=== PATIENT | female | born 1970 | race African-American/Black ===

== ENCOUNTER 2017-04-30 10:56 | Inpatient (IN) | payer OTHER ==
[2017-04-30 11:04] VITALS: BMI 48.7
[2017-04-30] MEDS ORDERED: ALBUTEROL SO4 2.5/IPRATROPIUM 0.5 INH SOL 3 ML VIAL.NEB. NEB ONE ×2 (11:09→14:30)
[2017-04-30] MEDS ORDERED: predniSONE 20 MG TABLET (UD) PO ONE (11:17)
--- NOTE | 2017-04-30 11:19 | PDOC ---
History of Present Illness - General Chief Complaint: Shortness of Breath Stated Complaint: ASTHMA ATTACK Time Seen by Provider: 04/30/17 11:07 History Source: Patient Exam Limitations: No Limitations - History of Present Illness Initial Comments: 04/30/17 11:19 The patient is a 45-year -old female, with significant past medical history of hypertension, hyperlipidemia, obesity, chronic venous stasis disease, asthma, and polysubstance abuse, presents to the ED for progressive shortness of breath for the past two days. She was recently visited by a sick contact who repeatedly coughed in her face. Tried two treatment of albuterol yesterday but with no relief. Nothing today. Not currently on steroids. Never intubated. Hospitalized once for dyspnea due to pneumonia. Took a few antibiotic pills she had left over from 3 weeks ago that were prescribed for a leg ulcer. 04/30/17 11:19 04/30/17 11:22 Past History - Past Medical History Allergies/Adverse Reactions: Allergies Allergy/AdvReac Type Severity Reaction Status Date / Time Penicillins AdvReac Verified 04/30/17 11:04 Home Medications: Ambulatory Orders Albuterol Sulfate Inhaler - [Ventolin Hfa Inhaler -] 2 inh PO Q6H PRN 01/12/16 Clopidogrel Bisulfate [Plavix -] 75 mg PO DAILY 01/12/16 Doxepin HCl 100 mg PO DAILY 01/12/16 Losartan/Hydrochlorothiazide [Losartan-Hctz 100-25 mg Tab] 1 each PO DAILY 01/11 Methadone [Dolophine -] 100 mg PO DAILY 01/12/16 Pantoprazole Sodium [Protonix] 40 mg PO DAILY 01/12/16 Tramadol HCl 50 mg PO BID 01/12/16 Asthma: Yes (currently on prn medication) Cardiac Disorders: Yes (HEART MURMUR) CVA: Yes (MILD STROKE IN 1997 DUE TO DRUG USE) COPD: No Diabetes: No GI Disorders: No Disorders: No HTN: Yes Hypercholesterolemia: Yes Kidney Stones: No Seizures: Yes (alcohol related-last episode, 1997) Thyroid Disease: No - Surgical History Abdominal Surgery: No Appendectomy: No Cardiac Surgery: No Cholecystectomy: No Lung Surgery: No Neurologic Surgery: No Orthopedic Surgery: Yes (LEFT KNEE IN 2009 DUE TO DJD) - Reproductive History PID: No - Immunization History Immunization Up to Date: Yes - Suicide/Smoking/Psychosocial Hx Smoking Status: Yes Smoking History: Current every day smoker Have you smoked in the past 12 months: Yes Number of Cigarettes Smoked Daily: 10 Information on smoking cessation initiated: Yes 'Breaking Loose' booklet given: 05/30/12 Hx Alcohol Use: Yes (daily) Drug/Substance Use Hx: No Substance Use Type: Alcohol Hx Substance Use Treatment: Yes (in [facility]) Respiratory Specific PMHX - Complaint Specific PMHX TB (Tuberculosis): No Review of Systems - Review of Systems Able to Perform ROS?: Yes Is the patient limited Somali proficient: No Constitutional: No: Chills Respiratory: Yes: Cough, Shortness of Breath, SOB with Exertion, Wheezing *Physical Exam - Vital Signs Last Vital Signs Temp Pulse Resp BP Pulse Ox 98.3 F 119 H 22 153/105 85 L 04/30/17 11:01 04/30/17 11:01 04/30/17 11:01 04/30/17 11:01 04/30/17 11:01 - Physical Exam General Appearance: Yes: Appropriately Dressed, Moderate Distress, Obese HEENT: positive: Other (possibly cyanotic lips) Respiratory/Chest: positive: Crackles, Wheezing. negative: Chest Tender Cardiovascular: positive: Regular Rhythm, Regular Rate, S1, S2 Gastrointestinal/Abdominal: positive: Normal Bowel Sounds Musculoskeletal: positive: Normal Inspection Extremity: positive: Delayed Capillary Refill Integumentary: positive: Dry, Warm Neurologic: positive: Alert, Normal Mood/Affect ED Treatment Course - LABORATORY CBC & Chemistry Diagram: 04/30/17 11:43 04/30/17 11:43 - RADIOLOGY Radiology Studies Ordered: Category Date Time Status CHEST PA & LAT [RAD] Stat Radiology 04/30/17 11:15 Ordered Medical Decision Making - Medical Decision Making 04/30/17 11:21 The patient is a 45-year -old female, with significant past medical history of hypertension, hyperlipidemia, obesity, chronic venous stasis disease, asthma, and polysubstance abuse, presents to the ED for progressive shortness of breath for the past two days. Asthma/copd exacerbation vs influenza, vs pneumonia CRX pending, basic labs, ua, Ucx. *DC/Admit/Observation/Transfer Diagnosis at time of Disposition: Acute respiratory failure - Discharge Dispostion Admit: Yes - Referrals Referrals: Jourdan Hoff MD, MD [Primary Care Provider] - - Patient Instructions - Post Discharge Activity
--- NOTE | 2017-04-30 11:30 | PDOC ---
Attending Attestation - HPI HPI: 04/30/17 14:13 Patient is a 46 year old female with a significant past medical history of HTN, hypercholesterolemia, obesity, polycythemia, chronic venous stasis disease, asthma, polysubstance abuse who presents to the ED with complaints of SOB that began yesterday morning. Patient reports experiencing a slight cough saturday morning after taking care of her niece all weekend who was coughing. Patient reports taking 2 treatments of albuterol yesterday with minimal relief. She reports taking previously prescribed antibiotics, thinking it would help relieve her SOB. She states antibiotics were prescribed for ulcer on left lower extremity. Patient reports being unable to take any breathing treatments today do to being increasingly weak. Denies nausea, vomiting. Denies CP. Denies fevers, chills. Denies dysuria, hematuria, diarrhea, constipation. Denies out of state travelling. Denies any other symptoms. Allergies: Penicillins. Social history: Current smoker (6 Cigarettes per day). Social drinker (1 to 2 drinks per week). Former drug use on methadone. Surgical history: None PMD: Dr. Jourdan Hoff - Medical Decision Making 04/30/17 14:13 Documentation prepared by Rene Arredondo, acting as medical research associate for Jarett Felix MD, /DO. <Rene Arredondo - Last Filed: 04/30/17 14:13> - Resident Resident Name: KoreyHardeep - ED Attending Attestation I have performed the following: I have examined & evaluated the patient, The case was reviewed & discussed with the resident, I agree w/resident's findings & plan, Exceptions are as noted - Physicial Exam PE: 04/30/17 14:53 GENERAL: Awake, alert, and fully oriented, in no acute distress HEAD: No signs of trauma EYES: PERRLA, EOMI, sclera anicteric, conjunctiva clear ENT: Auricles normal inspection, hearing grossly normal, nares patent, oropharynx clear without exudates. Moist mucosa NECK: Normal ROM, supple, no lymphadenopathy, JVD, or masses LUNGS: poor air movement, mild wheezing diffusely, no increased WOB HEART: Regular rate and rhythm, normal S1 and S2, no murmurs, rubs or gallops ABDOMEN: Soft, nontender, normoactive bowel sounds. No guarding, no rebound. No masses EXTREMITIES: Normal range of motion, no edema. No clubbing or cyanosis. No cords, erythema, or tenderness NEUROLOGICAL: Normal speech, cranial nerves intact, negative pronator drift, 5/ 5 strength in all 4 extremities, normal sensation to light touch in all 4 extremities, normal cerebellar exam, normal gait, normal reflexes and tone - Medical Decision Making 04/30/17 14:54 46-year-old female multiple medical problems including asthma presents with shortness of breath and cough for 3 days. Vitals remarkable for tachycardia to the 110s and hypoxia on arrival to 85% on room air. After nebulizer treatment oxygen saturation is 95% on room air. Exam with poor air movement and diffuse wheezing consistent with likely asthma exacerbation. Will obtain labs, chest x- ray and reassess. Given shortness of breath and tachycardia, PE is on the differential however patient has no recent immobility, is not on hormones. If vitals and symptoms do not normalize with nebulizer, will consider a d-dimer. <Jarett Felix - Last Filed: 04/30/17 14:56>
[2017-04-30] MEDS ORDERED: predniSONE 20 MG TABLET (UD) ONE (11:39)
[2017-04-30 12:05] LABS: BASO % 0.4 % (0-2.0); EOS % 0.9 % (0-4.5); HEMATOCRIT 54.4 % (32.4-45.2); HEMOGLOBIN 17.3 GM/dL (10.7-15.3); LYMPH % 22.2 % (8-40); MCH 30.5 pg (25.7-33.7); MCHC 31.8 g/dl (32.0-36.0); MEAN CELL VOLUME 95.9 fl (80-96); MEAN PLT VOLUME 8.2 fl (7.5-11.1); NEUT % 67.5 % (42.8-82.8); PLATELET COUNT 168 K/MM3 (134-434); RBC 5.68 M/mm3 (3.60-5.2); RDW 15.8 % (11.6-15.6); WHITE BLOOD COUNT 7.3 K/mm3 (4.0-10.0)
[2017-04-30 12:25] LABS: ALBUMIN 3.3 g/dl (3.4-5.0); ALK PHOS 117 U/L (45-117); ANION GAP 9 (8-16); BLOOD UREA NITROGEN 6 mg/dL (7-18); CALCIUM 9.1 mg/dL (8.5-10.1); CHLORIDE 102 mmol/L (98-107); CO2 29 mmol/L (21-32); CREATININE 0.7 mg/dL (0.55-1.02); GLUCOSE,RANDOM 87 mg/dL (74-106); PHOSPHOROUS 3.6 mg/dL (2.5-4.9); SGPT/ALT 23 U/L (12-78); SODIUM 140 mmol/L (136-145); TOT PROT 7.3 g/dl (6.4-8.2)
[2017-04-30 12:35] LABS: SGOT/AST 24 U/L (15-37)
[2017-04-30] MEDS ORDERED: ALBUTEROL SO4 0.083% IH SOL 2.5 MG/3 ML VIAL.NEB. NEB ONE (14:27)
[2017-04-30] MEDS ORDERED: CEFTRIAXONE IN IS-OSM DEXTROSE 2 GM/50 ML BAG IVPB ONE (16:22)
[2017-04-30] MEDS ORDERED: AZITHROMYCIN IVPB 500 MG in DEXTROSE 5%-WATER - 250 ML IVPB ONE (16:23)
[2017-04-30] MEDS ORDERED: AZITHROMYCIN IVPB 250 ML IVPB ONE (17:32)
--- NOTE | 2017-04-30 23:35 | HP ---
CHIEF COMPLAINT: SOB, Wheezing PCP: Dr. Hoff HISTORY OF PRESENT ILLNESS: This is a 46 y/o woman with a PMHx of: Asthma, HTN, HLD, Polycythemia, Polysubstance Abuse, Chronic Venous Stenosis Ulcers, Obesity. Who presents to the ED with increased SOB x 1 day. Patient reports having CHESTER, Orthopnea. Patient reports increased use of her Nebulizer and MDI. Patient denies fever, chills, dizziness, CP, palpitations, AP, N/V/D, constipation, dysuria. Recent sick contact- niece coughing over the weekend. ER course was notable for: (1) Chest Xray- image Cardiomegaly, Increased lung markings- report pending (2) Influenza Swab- Negative A, B (3) BNP 735 Recent Travel: None PAST MEDICAL HISTORY: See HPI PAST SURGICAL HISTORY: Social History: Smoking: Current daily Alcohol: Socially Drugs: Former- Polysubstance Family History: Allergies Penicillins Adverse Reaction (Verified 04/30/17 11:04) VAGINAL DISCHARGE HOME MEDICATIONS: Home Medications Medication Instructions Recorded Albuterol Sulfate Inhaler - 2 inh PO Q6H PRN 01/12/16 [Ventolin Hfa Inhaler -] Clopidogrel Bisulfate [Plavix -] 75 mg PO DAILY 01/12/16 Doxepin HCl 100 mg PO DAILY 01/12/16 Losartan/Hydrochlorothiazide 1 each PO DAILY 01/12/16 [Losartan-Hctz 100-25 mg Tab] Methadone [Dolophine -] 100 mg PO DAILY 01/12/16 Pantoprazole Sodium [Protonix] 40 mg PO DAILY 01/12/16 Tramadol HCl 50 mg PO BID 01/12/16 REVIEW OF SYSTEMS CONSTITUTIONAL: Absent: fever, chills, diaphoresis, generalized weakness, malaise, loss of appetite, weight change HEENT: Absent: rhinorrhea, nasal congestion, throat pain, throat swelling, difficulty swallowing, mouth swelling, ear pain, eye pain, visual changes CARDIOVASCULAR: Absent: chest pain, syncope, palpitations, irregular heart rate, lightheadedness , peripheral edema RESPIRATORY: cough, shortness of breath, dyspnea with exertion, orthopnea, wheezing Absent: stridor, hemoptysis GASTROINTESTINAL: Absent: abdominal pain, abdominal distension, nausea, vomiting, diarrhea, constipation, melena, hematochezia GENITOURINARY: Absent: dysuria, frequency, urgency, hesitancy, hematuria, flank pain, genital pain MUSCULOSKELETAL: Absent: myalgia, arthralgia, joint swelling, back pain, neck pain SKIN: Absent: rash, itching, pallor HEMATOLOGIC/IMMUNOLOGIC: Absent: easy bleeding, easy bruising, lymphadenopathy, frequent infections ENDOCRINE: Absent: unexplained weight gain, unexplained weight loss, heat intolerance, cold intolerance NEUROLOGIC: Absent: headache, focal weakness or paresthesias, dizziness, unsteady gait, seizure, mental status changes, bladder or bowel incontinence PSYCHIATRIC: Absent: anxiety, depression, suicidal or homicidal ideation, hallucinations. PHYSICAL EXAMINATION Vital Signs - 24 hr 04/30/17 04/30/17 11:01 11:25 Temperature 98.3 F Pulse Rate 119 H 112 H Respiratory 22 Rate Blood Pressure 153/105 O2 Sat by Pulse 85 L 98 Oximetry (%) GENERAL: Severely Obese, awake, alert, and fully oriented, in no acute distress. HEAD: Normal with no signs of trauma. EYES: Pupils equal, round and reactive to light, extraocular movements intact, sclera anicteric, conjunctiva clear. No lid lag. EARS, NOSE, THROAT: Ears normal, nares patent, oropharynx clear without exudates. Moist mucous membranes. NECK: Normal range of motion, supple without lymphadenopathy, JVD, or masses. LUNGS: Scattered diffuse wheeze, coarse rhonchi throughout. No accessory muscle use. HEART: Regular rate and rhythm, normal S1 and S2 without murmur, rub or gallop. ABDOMEN: Soft, obese, nontender, not distended, normoactive bowel sounds, no guarding, no rebound, no masses. No hepatomegaly or splenomegaly. MUSCULOSKELETAL: Normal range of motion at all joints. No bony deformities or tenderness. No CVA tenderness. UPPER EXTREMITIES: 2+ pulses, warm, well-perfused. No cyanosis. No clubbing. No peripheral edema. LOWER EXTREMITIES: 2+ pulses, warm, well-perfused. No calf tenderness. +4 pitting peripheral edema B/L. NEUROLOGICAL: Cranial nerves II-XII intact. Normal speech. Gait not observed. PSYCHIATRIC: Cooperative. Good eye contact. Appropriate mood and affect. SKIN: Warm, dry, normal turgor, no rashes normal capillary refill. venous stasis ulcers, eschar, crusting noted Laboratory Results - last 24 hr 0104/30/17 04/30/17 11:43 11:43 11:43 WBC 7.3 D RBC 5.68 H D Hgb 17.3 H D Hct 54.4 H D MCV 95.9 MCH 30.5 MCHC 31.8 L RDW 15.8 H Plt Count 168 D MPV 8.2 Neutrophils % 67.5 D Lymphocytes % 22.2 D Monocytes % 9.0 Eosinophils % 0.9 Basophils % 0.4 Sodium 140 Potassium 4.0 Chloride 102 Carbon Dioxide 29 Anion Gap 9 BUN 6 L D Creatinine 0.7 D Creat Clearance w eGFR > 60 Random Glucose 87 Calcium 9.1 Phosphorus 3.6 Magnesium 2.0 Total Bilirubin 1.0 AST 24 D ALT 23 D Alkaline Phosphatase 117 D Creatine Kinase 109 Troponin I < 0.02 B-Natriuretic Peptide 735.10 H Total Protein 7.3 Albumin 3.3 L ASSESSMENT/PLAN: This is a 46 y/o woman with PMHx of Asthma, HTN, HLD, Polysubstance Abuse (on Methadone) Severe Obesity, Polycythemia, Chronic Venous Stasis Ulcers. Admitted for Acute Asthma Exacerbation, Hypoxemia, Pneumonia. Plan: 1. Acute Asthma Exacerbation- Continue Duonebs, Solumederol, O2. Appreciate Pulm Consult. Monitor Peakflow, Spo2, Vitals 2. Hypoxemia- Likely secondary to Pneumonia vs Reactive Airway. ABG-pending, O2 3. Pneumonia- CAP, started on Ceftriaxone, Azithromycin. will switch to Levofloxacin- PCN allergy, Blood Cultures- pending, Urine Legionella, Influenza swab- negative. Monitor CBC 4. HTN- Continue home meds, monitor renal function 5. HLD- Diet controlled 6. Polycythemia- Continue Plavix 7. Chronic Venous Stasis Ulcers- elevate extremities, continue diuretics 8. Polysubstance Abuse- Will need to verify Methadone dose, then continue 9. Severe Obesity- Patient counseled on weight management. Appreciate RD consult 10. FEN- PO Fluids, replete lytes prn, Low Na, Low Cholesterol, Carb Control Diet Code Status: Full Code Dispo: Requires Inpatient Care Was notified by [employer] by the scribe and the primary RN @22:22, regarding who the Attending is taking care of the patient. The case was never signed out to the [facility]. The admit to order was placed at 16:21 by the ED resident for Dr. Haylie Hoff. That is why there was a delay in the patient being seen. Visit type - Emergency Visit Emergency Visit: Yes ED Registration Date: 04/30/17 Care time: The patient presented to the Emergency Department on the above date and was hospitalized for further evaluation of their emergent condition. - New Patient This patient is new to me today: Yes Date on this admission: 05/01/17 - Critical Care Critical Care patient: No
[2017-05-01 00:22] LABS: ALLENS TEST POSITIVE; ARTERIAL BLD GAS O2 SATURATION 93.1 % (90-98.9); ARTERIAL BLOOD GAS BASE EXCESS 1.3 meq/l (-2-2); ARTERIAL BLOOD GAS PCO2 46.5 mmHg (35-45); ARTERIAL BLOOD GAS PO2 70.3 mmHg (80-100); ARTERIAL BLOOD GAS pH 7.38 (7.35-7.45)
[2017-05-01 04:13] LABS: URINE APPEARANCE CLOUDY; URINE BILIRUBIN NEGATIVE (NEGATIVE); URINE BLOOD 1+ (NEGATIVE); URINE GLUCOSE (UA) NEGATIVE (NEGATIVE); URINE KETONE NEGATIVE (NEGATIVE); URINE NITRITE NEGATIVE (NEGATIVE); URINE UROBILINOGEN 4.0 E.U/dl mg/dL (0.2-1.0)
[2017-05-01 04:15] LABS: URINE COLOR YELLOW; URINE LEUK ESTERASE 3+ (NEGATIVE); URINE PROTEIN 3+ (NEGATIVE)
[2017-05-01 04:21] LABS: EPI CELLS MANY /HPF (FEW); URINE BACTERIA RARE /hpf (NONE SEEN); URINE MUCUS RARE
[2017-05-01] MEDS ORDERED: ALBUTEROL SO4 2.5/IPRATROPIUM 0.5 INH SOL 3 ML VIAL.NEB. NEB PRN (07:00)
[2017-05-01] MEDS ORDERED: ACETAMINOPHEN 325 MG TABLET (FP) PO PRN (08:07)
[2017-05-01] MEDS ORDERED: methylPREDNISolone NA SUCC 40 MG/1 ML VIAL ONE ×3 (09:06→23:04)
[2017-05-01] MEDS: methylPREDNISolone NA SUCC 40 MG/1 ML VIAL IVPUSH SCH ×3 (09:22→23:11)
--- NOTE | 2017-05-01 09:32 | EKG ---
Test Reason : Blood Pressure : / mmHG Vent. Rate : 092 BPM Atrial Rate : 092 BPM P-R Int : 146 ms QRS Dur : 138 ms QT Int : 420 ms P-R-T Axes : 064 105 -09 degrees QTc Int : 519 ms NORMAL SINUS RHYTHM LEFT ATRIAL ENLARGEMENT RIGHT BUNDLE BRANCH BLOCK POSSIBLE INFERIOR INFARCT (CITED ON OR BEFORE 12-JAN-2016) ANTEROSEPTAL INFARCT , AGE UNDETERMINED T WAVE ABNORMALITY, CONSIDER LATERAL ISCHEMIA ABNORMAL ECG WHEN COMPARED WITH ECG OF 25-JUN-2016 09:29, PREMATURE ATRIAL COMPLEXES ARE NO LONGER PRESENT ANTEROSEPTAL INFARCT IS NOW PRESENT T WAVE INVERSION NOW EVIDENT IN LATERAL LEADS Confirmed by MONIQUE HERRERA, CLAIRE ([id number]) on 05/01/2017 9:31:33 AM Referred By: Confirmed By:CLAIRE AMAYA MD
--- NOTE | 2017-05-01 11:28 | PN ---
Progress Note, Physician Chief Complaint: AWAEK ON SUPPORT STILL SOB - Current Medication List Current Medications: Active Medications Acetaminophen (Tylenol -) 650 mg PO Q6H PRN PRN Reason: FEVER OR PAIN Albuterol/Ipratropium (Duoneb -) 1 amp NEB Q4H PRN PRN Reason: SHORTNESS OF BREATH Clopidogrel Bisulfate (Plavix -) 75 mg PO DAILY [facility] Doxepin HCl (Sinequan -) 100 mg PO DAILY [facility] HCTZ/Losartan Potassium (Hyzaar -) 2 tab PO DAILY [facility] Levofloxacin (Levaquin 500 Mg Premixed Ivpb -) 500 mg in 100 mls @ 100 mls/hr IVPB DAILY [facility] Methadone HCl (Dolophine -) 100 mg PO DAILY@0600 [facility] Methylprednisolone Sodium Succinate (Solu-Medrol -) 80 mg IVPUSH ONCE ONE Stop: 05/01/17 16:27 Methylprednisolone Sodium Succinate (Solu-Medrol -) 40 mg IVPUSH Q6H-IV ALEJANDRA Last Admin: 05/01/17 09:22 Dose: 40 mg Pantoprazole Sodium (Protonix -) 40 mg PO DAILY [facility] - Objective Vital Signs: Vital Signs Temperature 97.8 F 05/01/17 07:03 Pulse Rate 101 H 05/01/17 07:03 Respiratory Rate 18 05/01/17 07:03 Blood Pressure 130/81 05/01/17 07:03 O2 Sat by Pulse Oximetry (%) 94 L 05/01/17 07:03 Constitutional: Yes: Mild Distress Eyes: Yes: WNL HENT: Yes: WNL Neck: Yes: WNL Cardiovascular: Yes: Tachycardia Respiratory: Yes: On Nasal O2, Poor Air Entry, SOB Gastrointestinal: Yes: WNL Genitourinary: Yes: WNL Musculoskeletal: Yes: Muscle Weakness Extremities: Yes: WNL Edema: Yes Peripheral Pulses WNL: Yes Integumentary: Yes: WNL Wound/Incision: Yes: Clean/Dry Neurological: Yes: Pre-Existing Deficit ...Motor Strength: LLE, RLE Psychiatric: Yes: Other Labs: CBC, BMP 04/30/17 11:43 04/30/17 11:43 Problem List - Problems (1) Acute respiratory failure Code(s): J96.00 - ACUTE RESPIRATORY FAILURE, UNSP W HYPOXIA OR HYPERCAPNIA (2) Alcohol dependence Code(s): F10.20 - ALCOHOL DEPENDENCE, UNCOMPLICATED (3) Asthma Code(s): J45.909 - UNSPECIFIED ASTHMA, UNCOMPLICATED (4) Essential hypertension Code(s): I10 - ESSENTIAL (PRIMARY) HYPERTENSION (5) Hyperlipidemia Code(s): E78.5 - HYPERLIPIDEMIA, UNSPECIFIED (6) Osteoarthritis Code(s): M19.90 - UNSPECIFIED OSTEOARTHRITIS, UNSPECIFIED SITE (7) Seizure disorder Code(s): G40.909 - EPILEPSY, UNSP, NOT INTRACTABLE, WITHOUT STATUS EPILEPTICUS Assessment/Plan IV STEROIDS NEBS 02 SUPPORT PATIENT EDUCATION PAIN CONTROL METHADONE RESTARTED PULM AND ID CONSULT
[2017-05-01] MEDS ORDERED: METHADONE HCL 10 MG TABLET ONE (11:43)
[2017-05-01] MEDS ORDERED: LEVOFLOXACIN 500 MG IVPB 500 MG/100 ML BAG IVPB ONE (11:43)
[2017-05-01] MEDS: PANTOPRAZOLE 40 MG TABLET (FP) PO SCH (11:50)
[2017-05-01] MEDS: LEVOFLOXACIN 500 MG IVPB 500 MG/100 ML BAG IVPB SCH (11:50)
[2017-05-01] MEDS: METHADONE HCL 40 MG DISPERSABLE TABLET PO SCH (11:50)
[2017-05-01] MEDS: DOXEPIN HCL 25 MG CAPSULE PO SCH (11:50)
[2017-05-01] MEDS: CLOPIDOGREL BISULFATE 75 MG TABLET (FP) PO SCH (11:50)
[2017-05-01] MEDS: LOSARTAN 50MG/HCTZ 12.5MG 1 TAB (FP) PO SCH (11:50)
--- NOTE | 2017-05-01 15:12 | CON.PULM ---
Consult Consult Specialty:: PULMONARY Referred by:: ALEXIS Reason for Consultation:: ASTHMA - History of Present Illness Chief Complaint: COUGH/WHEEZE SPUTUM History of Present Illness: Patient is a 46 year old female with a significant past medical history of HTN, hypercholesterolemia, obesity, polycythemia, chronic venous stasis disease, asthma, polysubstance abuse in past now on 100mg methadone who presents to the ED with complaints of SOB that began yesterday morning. Patient reports experiencing a slight cough Saturday morning after taking care of her niece all weekend who was coughing. Patient reports taking 2 treatments of albuterol yesterday with minimal relief. She reports taking previously prescribed antibiotics, thinking it would help relieve her SOB. She states antibiotics were prescribed for ulcer on left lower extremity. Patient reports being unable to take any breathing treatments today do to being increasingly weak. - History Source History Provided By: Patient, Medical Record Limitations to Obtaining History: No Limitations - Past Medical History REGISTERED PHARMACIST: No: Alzheimer's Cardio/Vascular: Yes: HTN, Hyperlipdemia Pulmonary: Yes: Asthma, COPD. No: O2 Dependent Gastrointestinal: No: Ascites Hepatobiliary: No: Cirrhosis Renal/: No: Renal Failure ...LMP: 04/29/12 Heme/Onc: Yes: Other (polycythemia ) Psych: Yes: Addictions, Anxiety Musculoskeletal: Yes: Other (bilateral knee pain due to fall) - Past Surgical History Past Surgical History: Yes: Arthrosocopy (knee) - Alcohol/Substance Use Hx Alcohol Use: Yes (daily) - Smoking History Smoking history: Current every day smoker Have you smoked in the past 12 months: Yes Aproximately how many cigarettes per day: 10 - Social History Usual Living Arrangement: Alone Place of : [facility] History of Recent Travel: No Home Medications - Allergies Allergies/Adverse Reactions: Allergies Allergy/AdvReac Type Severity Reaction Status Date / Time Penicillins AdvReac Verified 04/30/17 11:04 - Home Medications Home Medications: Ambulatory Orders Albuterol Sulfate Inhaler - [Ventolin Hfa Inhaler -] 2 inh PO Q6H PRN 01/12/16 Clopidogrel Bisulfate [Plavix -] 75 mg PO DAILY 01/12/16 Doxepin HCl 100 mg PO DAILY 01/12/16 Losartan/Hydrochlorothiazide [Losartan-Hctz 100-25 mg Tab] 1 each PO DAILY 09/22 /16 Methadone [Dolophine -] 100 mg PO DAILY 01/12/16 Pantoprazole Sodium [Protonix] 40 mg PO DAILY 01/12/16 Tramadol HCl 50 mg PO BID 01/12/16 Family Disease History - Family Disease History Family History: Unremarkable Review of Systems - Review of Systems Constitutional: denies: Fever Eyes: denies: Blurred Vision HENT: denies: Throat Pain Neck: reports: No Symptoms Cardiovascular: reports: Chest Pain Respiratory: reports: Cough, Exercise Intolerance, SOB on Exertion, Wheezing. denies: Hemoptysis, Orthopnea Gastrointestinal: denies: Abdominal Pain Genitourinary: reports: No Symptoms Breasts: reports: No Symptoms Reported Musculoskeletal: reports: No Symptoms Integumentary: reports: No Symptoms Neurological: reports: No Symptoms Physical Exam Vital Sings: Vital Signs Temperature 97.8 F 05/01/17 07:03 Pulse Rate 78 05/01/17 12:27 Respiratory Rate 22 05/01/17 12:27 Blood Pressure 120/80 05/01/17 12:27 O2 Sat by Pulse Oximetry (%) 95 05/01/17 12:27 Constitutional: Yes: Obese Eyes: Yes: EOM Intact HENT: Yes: Normocephalic Neck: Yes: Trachea Midline Cardiovascular: Yes: Regular Rate and Rhythm, S1, S2 Respiratory: Yes: Diminished, Wheezes Gastrointestinal: Yes: Normal Bowel Sounds, Abdomen, Obese Edema: No Integumentary: Yes: Venous Stasis Changes Neurological: Yes: Alert Psychiatric: Yes: Alert Labs: CBC, BMP 04/30/17 11:43 04/30/17 11:43 ABG Results ABG pH 7.38 (7.35-7.45) 05/01/17 00:11 ABG pCO2 at Pt Temp 46.5 mmHg (35-45) H 05/01/17 00:11 ABG pO2 at Pt Temp 70.3 mmHg (80-100) L 05/01/17 00:11 ABG HCO3 26.7 meq/L (22-26) H 05/01/17 00:11 ABG O2 Sat (Measured) 93.1 % (90-98.9) 05/01/17 00:11 ABG O2 Content 22.2 % vol (15-22) H 05/01/17 00:11 ABG Base Excess 1.3 meq/l (-2-2) 05/01/17 00:11 rest reviewed Imaging - Results Chest X-ray: Report Reviewed, Image Reviewed EKG: Report Reviewed, Image Reviewed Problem List - Problems (1) Asthma Code(s): J45.909 - UNSPECIFIED ASTHMA, UNCOMPLICATED (2) Essential hypertension Code(s): I10 - ESSENTIAL (PRIMARY) HYPERTENSION (3) Hyperlipidemia Code(s): E78.5 - HYPERLIPIDEMIA, UNSPECIFIED (4) Osteoarthritis Code(s): M19.90 - UNSPECIFIED OSTEOARTHRITIS, UNSPECIFIED SITE Assessment/Plan A/E B. ASTHMA LIKELY DUE TO ACUTE BRONCHITIS MULTIPLE CO-MORBID CONDITIONS LISTED WILL NEED TO R/O [facility] OUTPATIENT INFLU SWAB/SPUTUM GRAM STAIN/CULTURE IV STEROIDS/ANTIBIOTICS/BRONCHODILATORS/O2 SUPPLEMENTATION/DAILY PEAK FLOW WILL FOLLOW THANK YOU Adrien WALL MD
[2017-05-01] MEDS ORDERED: ALBUTEROL SO4 2.5/IPRATROPIUM 0.5 INH SOL 3 ML VIAL.NEB. NEB SCH (15:30)
[2017-05-01] MEDS ORDERED: methylPREDNISolone NA SUCC 125 MG/2 ML VIAL IVPUSH ONE (16:26)
[2017-05-01] MEDS ORDERED: ALBUTEROL SO4 2.5/IPRATROPIUM 0.5 INH SOL 3 ML VIAL.NEB. NEB ONE (18:24)
[2017-05-01] MEDS: ALBUTEROL SO4 2.5/IPRATROPIUM 0.5 INH SOL 3 ML VIAL.NEB. NEB SCH ×2 (18:29→23:12)
--- NOTE | 2017-05-01 18:39 | CON.ID ---
Consult Consult Specialty:: infectious diseases Referred by:: Reason for Consultation:: sob,pna - History of Present Illness Chief Complaint: sob History of Present Illness: 46 year old female with past medical history of HTN, hypercholesterolemia, obesity, polycythemia, chronic venous stasis disease, asthma, polysubstance abuse in past now on 100mg methadone came to the ED with complaints of SOB that began yesterday morning. According to the patient she was wiht her niece who it seems was sick and had cough and patient says she also developed coughing. 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 No: O2 Dependent Gastrointestinal: No: Ascites Hepatobiliary: No: Cirrhosis Renal/: No: Renal Failure ...LMP: 04/29/12 Psych: Yes: Addictions, Anxiety Musculoskeletal: Yes: Other (bilateral knee pain due to fall) - Past Surgical History Past Surgical History: Yes: Arthrosocopy (knee) - Alcohol/Substance Use Hx Alcohol Use: Yes (daily) - Smoking History Smoking history: Current every day smoker Have you smoked in the past 12 months: Yes Aproximately how many cigarettes per day: 10 - Social History Usual Living Arrangement: Alone History of Recent Travel: No Home Medications - Allergies Allergies/Adverse Reactions: Allergies Allergy/AdvReac Type Severity Reaction Status Date / Time Penicillins AdvReac Verified 04/30/17 11:04 - Home Medications Home Medications: Ambulatory Orders Albuterol Sulfate Inhaler - [Ventolin Hfa Inhaler -] 2 inh PO Q6H PRN 01/12/16 Clopidogrel Bisulfate [Plavix -] 75 mg PO DAILY 01/12/16 Doxepin HCl 100 mg PO DAILY 01/12/16 Losartan/Hydrochlorothiazide [Losartan-Hctz 100-25 mg Tab] 1 each PO DAILY 01/11 Methadone [Dolophine -] 100 mg PO DAILY 01/12/16 Pantoprazole Sodium [Protonix] 40 mg PO DAILY 01/12/16 Tramadol HCl 50 mg PO BID 01/12/16 Review of Systems - Review of Systems Constitutional: reports: No Symptoms Eyes: reports: No Symptoms HENT: reports: No Symptoms Neck: reports: No Symptoms Cardiovascular: reports: No Symptoms Respiratory: reports: Cough, SOB, SOB on Exertion, Other Gastrointestinal: reports: No Symptoms Genitourinary: reports: No Symptoms Musculoskeletal: reports: No Symptoms Integumentary: reports: No Symptoms Neurological: reports: No Symptoms Endocrine: reports: No Symptoms Hematology/Lymphatic: reports: No Symptoms Psychiatric: reports: No Symptoms Physical Exam Vital Signs: Vital Signs Temperature 97.8 F 05/01/17 07:03 Pulse Rate 78 05/01/17 12:27 Respiratory Rate 22 05/01/17 12:27 Blood Pressure 120/80 05/01/17 12:27 O2 Sat by Pulse Oximetry (%) 95 05/01/17 12:27 Constitutional: Yes: Well Nourished, Calm, Mild Distress Eyes: Yes: Conjunctiva Clear Neck: Yes: Supple, Trachea Midline Cardiovascular: Yes: Regular Rate and Rhythm Respiratory: Yes: On Nasal O2, Poor Air Entry (bases) Gastrointestinal: Yes: Normal Bowel Sounds, Soft Musculoskeletal: Yes: WNL Extremities: Yes: WNL Neurological: Yes: Alert, Oriented Psychiatric: Yes: Alert, Oriented Labs: CBC, BMP 04/30/17 11:43 04/30/17 11:43 Imaging - Results Chest X-ray: Report Reviewed, Image Reviewed Assessment/Plan at the moment i don not think patient has pneumonia,though she might be developing something patient has been started on levaquin patient denies she has copd Problem List - Problems (1) Asthma Code(s): J45.909 - UNSPECIFIED ASTHMA, UNCOMPLICATED (2) Essential hypertension Code(s): I10 - ESSENTIAL (PRIMARY) HYPERTENSION (3) Hyperlipidemia Code(s): E78.5 - HYPERLIPIDEMIA, UNSPECIFIED (4) Osteoarthritis Code(s): M19.90 - UNSPECIFIED OSTEOARTHRITIS, UNSPECIFIED SITE plan at the moment we will continue levaquin and watch how ppatient does will repeat the xray in a day or so await for all results incentive petra rest as per pul/primary team
[2017-05-02] MEDS: methylPREDNISolone NA SUCC 40 MG/1 ML VIAL IVPUSH SCH ×4 (02:17→22:29)
[2017-05-02] MEDS: ALBUTEROL SO4 2.5/IPRATROPIUM 0.5 INH SOL 3 ML VIAL.NEB. NEB SCH ×5 (08:30→20:58)
[2017-05-02] MEDS: CLOPIDOGREL BISULFATE 75 MG TABLET (FP) PO SCH (10:17)
[2017-05-02] MEDS: PANTOPRAZOLE 40 MG TABLET (FP) PO SCH (10:17)
[2017-05-02] MEDS: LEVOFLOXACIN 500 MG IVPB 500 MG/100 ML BAG IVPB SCH (10:17)
--- NOTE | 2017-05-02 10:50 | PN ---
Progress Note (short form) - Note Progress Note: PULMONARY States breathing slightly improved but still with shortness of breath, chest tightness, nonproductive cough and wheezing. No fevers or chills. Last Vital Signs Temp Pulse Resp BP Pulse Ox 98.3 F 98 H 22 135/88 92 L 05/02/17 05:56 05/02/17 05:56 05/02/17 05:56 05/02/17 05:56 05/01/17 23:58 Gen: NAD at rest Heart: RRR Lung: poor air movement, scattered wheezes, rhonchi Abd: soft, nontender Ext: chronic changes CBC, BMP 04/30/17 11:43 04/30/17 11:43 Active Medications Acetaminophen (Tylenol -) 650 mg PO Q6H PRN PRN Reason: FEVER Albuterol/Ipratropium (Duoneb -) 1 amp NEB Q4HWA [facility] Last Admin: 05/02/17 08:30 Dose: 1 amp Clopidogrel Bisulfate (Plavix -) 75 mg PO DAILY [facility] Last Admin: 05/02/17 10:17 Dose: 75 mg Doxepin HCl (Sinequan -) 100 mg PO DAILY [facility] Last Admin: 05/01/17 11:50 Dose: 100 mg HCTZ/Losartan Potassium (Hyzaar -) 2 tab PO DAILY [facility] Last Admin: 05/01/17 11:50 Dose: 2 tab Levofloxacin (Levaquin 500 Mg Premixed Ivpb -) 500 mg in 100 mls @ 100 mls/hr IVPB DAILY [facility] Last Admin: 05/02/17 10:17 Dose: 100 mls/hr Methadone HCl (Dolophine -) 100 mg PO DAILY@0600 [facility] Last Admin: 05/01/17 11:50 Dose: 100 mg Methylprednisolone Sodium Succinate (Solu-Medrol -) 40 mg IVPUSH Q6H-IV [facility] Last Admin: 05/02/17 09:50 Dose: 40 mg Pantoprazole Sodium (Protonix -) 40 mg PO DAILY [facility] Last Admin: 05/02/17 10:17 Dose: 40 mg A/P Acute Hypoxic Respiratory Failure Acute Asthma Exacerbation Acute Bronchitis HTN Hyperlipidemia Polycythemmia Polysubstance Abuse Smoker - continue medrol at current dose - inhaled bronchodilators standing and PRN - O2 to keep SpO2 >90% - monitor peak flow - continue antibiotics - will need to check ambulatory SpO2 on room air to assess for home O2 when ready for discharge - smoking cessation - DVT prophylaxis
[2017-05-02] MEDS: LOSARTAN 50MG/HCTZ 12.5MG 1 TAB (FP) PO SCH (11:19)
[2017-05-02] MEDS: DOXEPIN HCL 25 MG CAPSULE PO SCH (11:20)
[2017-05-02] MEDS ORDERED: METHADONE HCL 40 MG DISPERSABLE TABLET ONE (11:48)
[2017-05-02] MEDS ORDERED: METHADONE HCL 10 MG TABLET ONE (11:48)
[2017-05-02] MEDS: METHADONE 20 MG, METHADONE 80 MG PO SCH (11:55)
[2017-05-02] MEDS: METHADONE HCL 40 MG DISPERSABLE TABLET PO SCH (12:01)
--- NOTE | 2017-05-02 12:03 | PN ---
Progress Note, Physician History of Present Illness: starting to feel little better still sob - Current Medication List Current Medications: Active Medications Acetaminophen (Tylenol -) 650 mg PO Q6H PRN PRN Reason: FEVER Albuterol/Ipratropium (Duoneb -) 1 amp NEB Q4HWA [facility] Last Admin: 05/02/17 08:30 Dose: 1 amp Clopidogrel Bisulfate (Plavix -) 75 mg PO DAILY [facility] Last Admin: 05/02/17 10:17 Dose: 75 mg Doxepin HCl (Sinequan -) 100 mg PO DAILY [facility] Last Admin: 05/02/17 11:20 Dose: 100 mg HCTZ/Losartan Potassium (Hyzaar -) 2 tab PO DAILY [facility] Last Admin: 05/02/17 11:19 Dose: 2 tab Levofloxacin (Levaquin 500 Mg Premixed Ivpb -) 500 mg in 100 mls @ 100 mls/hr IVPB DAILY [facility] Last Admin: 05/02/17 10:17 Dose: 100 mls/hr Methadone HCl 20 mg/ Methadone (HCl 80 mg) 100 mg PO DAILY [facility] Last Admin: 05/02/17 11:55 Dose: 100 mg Methylprednisolone Sodium Succinate (Solu-Medrol -) 40 mg IVPUSH Q6H-IV [facility] Last Admin: 05/02/17 09:50 Dose: 40 mg Pantoprazole Sodium (Protonix -) 40 mg PO DAILY [facility] Last Admin: 05/02/17 10:17 Dose: 40 mg - Objective Vital Signs: Vital Signs Temperature 98.3 F 05/02/17 05:56 Pulse Rate 98 H 05/02/17 05:56 Respiratory Rate 22 05/02/17 05:56 Blood Pressure 135/88 05/02/17 05:56 O2 Sat by Pulse Oximetry (%) 92 L 05/01/17 23:58 Constitutional: Yes: Calm, Mild Distress, Obese Cardiovascular: Yes: Regular Rate and Rhythm Respiratory: Yes: On Nasal O2, Poor Air Entry, Wheezes Gastrointestinal: Yes: Normal Bowel Sounds, Soft Musculoskeletal: Yes: WNL Extremities: Yes: WNL Neurological: Yes: Alert, Oriented Psychiatric: Yes: Alert, Oriented Labs: CBC, BMP 04/30/17 11:43 04/30/17 11:43 Assessment/Plan Problem List - Problems (1) Asthma Code(s): J45.909 - UNSPECIFIED ASTHMA, UNCOMPLICATED (2) Essential hypertension Code(s): I10 - ESSENTIAL (PRIMARY) HYPERTENSION (3) Hyperlipidemia Code(s): E78.5 - HYPERLIPIDEMIA, UNSPECIFIED (4) Osteoarthritis Code(s): M19.90 - UNSPECIFIED OSTEOARTHRITIS, UNSPECIFIED SITE Hyperlipidemia Polycythemmia Polysubstance Abuse Smoker plan continue current mgmt rest as per primary team incentive petra will change levaquin to oral tomorrow
--- NOTE | 2017-05-02 19:05 | PN ---
Progress Note, Physician Chief Complaint: AWAKE ALERT FEELING BETTER - Current Medication List Current Medications: Active Medications Acetaminophen (Tylenol -) 650 mg PO Q6H PRN PRN Reason: FEVER Albuterol/Ipratropium (Duoneb -) 1 amp NEB Q4HWA [facility] Last Admin: 05/02/17 16:05 Dose: 1 amp Clopidogrel Bisulfate (Plavix -) 75 mg PO DAILY [facility] Last Admin: 05/02/17 10:17 Dose: 75 mg Doxepin HCl (Sinequan -) 100 mg PO DAILY [facility] Last Admin: 05/02/17 11:20 Dose: 100 mg HCTZ/Losartan Potassium (Hyzaar -) 2 tab PO DAILY [facility] Last Admin: 05/02/17 11:19 Dose: 2 tab Levofloxacin (Levaquin 500 Mg Premixed Ivpb -) 500 mg in 100 mls @ 100 mls/hr IVPB DAILY [facility] Last Admin: 05/02/17 10:17 Dose: 100 mls/hr Methadone HCl 20 mg/ Methadone (HCl 80 mg) 100 mg PO DAILY [facility] Last Admin: 05/02/17 11:55 Dose: 100 mg Methylprednisolone Sodium Succinate (Solu-Medrol -) 40 mg IVPUSH Q6H-IV [facility] Last Admin: 05/02/17 15:30 Dose: 40 mg Pantoprazole Sodium (Protonix -) 40 mg PO DAILY [facility] Last Admin: 05/02/17 10:17 Dose: 40 mg - Objective Vital Signs: Vital Signs Temperature 97.7 F 05/02/17 14:31 Pulse Rate 93 H 05/02/17 14:31 Respiratory Rate 20 05/02/17 14:31 Blood Pressure 114/87 05/02/17 14:31 O2 Sat by Pulse Oximetry (%) 93 L 05/02/17 09:00 Constitutional: Yes: Mild Distress Eyes: Yes: WNL HENT: Yes: WNL Neck: Yes: WNL Cardiovascular: Yes: WNL Respiratory: Yes: On Nasal O2, SOB Gastrointestinal: Yes: WNL Musculoskeletal: Yes: Muscle Weakness Extremities: Yes: WNL Edema: No Peripheral Pulses WNL: Yes Integumentary: Yes: WNL ...Motor Strength: WNL Psychiatric: Yes: WNL Labs: CBC, BMP 04/30/17 11:43 04/30/17 11:43 Problem List - Problems (1) Acute respiratory failure Code(s): J96.00 - ACUTE RESPIRATORY FAILURE, UNSP W HYPOXIA OR HYPERCAPNIA (2) Alcohol dependence Code(s): F10.20 - ALCOHOL DEPENDENCE, UNCOMPLICATED (3) Asthma Code(s): J45.909 - UNSPECIFIED ASTHMA, UNCOMPLICATED (4) Essential hypertension Code(s): I10 - ESSENTIAL (PRIMARY) HYPERTENSION (5) Hyperlipidemia Code(s): E78.5 - HYPERLIPIDEMIA, UNSPECIFIED (6) Osteoarthritis Code(s): M19.90 - UNSPECIFIED OSTEOARTHRITIS, UNSPECIFIED SITE (7) Seizure disorder Code(s): G40.909 - EPILEPSY, UNSP, NOT INTRACTABLE, WITHOUT STATUS EPILEPTICUS Assessment/Plan IV STEROIDS NEBS 02 SUPPORT PATIENT EDUCATION PAIN CONTROL METHADONE RESTARTED PULM AND ID CONSULT
[2017-05-03] MEDS: methylPREDNISolone NA SUCC 40 MG/1 ML VIAL IVPUSH SCH ×4 (02:24→22:26)
[2017-05-03 08:07] LABS: HEMATOCRIT 54.2 % (32.4-45.2); HEMOGLOBIN 17.2 GM/dL (10.7-15.3); MCH 30.6 pg (25.7-33.7); MCHC 31.7 g/dl (32.0-36.0); MEAN CELL VOLUME 96.6 fl (80-96); MEAN PLT VOLUME 8.1 fl (7.5-11.1); PLATELET COUNT 177 K/MM3 (134-434); RBC 5.61 M/mm3 (3.60-5.2); WHITE BLOOD COUNT 9.8 K/mm3 (4.0-10.0)
[2017-05-03 08:29] LABS: ALBUMIN 3.3 g/dl (3.4-5.0); ANION GAP 6 (8-16); BILIRUBIN,TOTAL 0.6 mg/dL (0.2-1.0); BLOOD UREA NITROGEN 19 mg/dL (7-18); CALCIUM 9.4 mg/dL (8.5-10.1); CHLORIDE 99 mmol/L (98-107); CO2 31 mmol/L (21-32); CREATININE 0.7 mg/dL (0.55-1.02); GLUCOSE,RANDOM 166 mg/dL (74-106); MAGNESIUM 2.4 mg/dL (1.8-2.4); POTASSIUM 4.3 mmol/L (3.5-5.1); SGOT/AST 16 U/L (15-37); SGPT/ALT 27 U/L (12-78); SODIUM 136 mmol/L (136-145); TOT PROT 7.3 g/dl (6.4-8.2)
[2017-05-03 08:30] LABS: ALK PHOS 101 U/L (45-117)
[2017-05-03] MEDS: ALBUTEROL SO4 2.5/IPRATROPIUM 0.5 INH SOL 3 ML VIAL.NEB. NEB SCH ×4 (09:05→21:21)
[2017-05-03] MEDS: LEVOFLOXACIN 500 MG IVPB 500 MG/100 ML BAG IVPB SCH (10:00)
[2017-05-03] MEDS ORDERED: METHADONE HCL 40 MG DISPERSABLE TABLET ONE (10:55)
[2017-05-03] MEDS ORDERED: METHADONE HCL 10 MG TABLET ONE (10:55)
[2017-05-03] MEDS ORDERED: PT OWN MED DRAWER 7, Y5N ONE ×2 (10:56→17:43)
--- NOTE | 2017-05-03 10:57 | PN ---
Progress Note, Physician History of Present Illness: feelign much better sob has improved cough bothering her - Current Medication List Current Medications: Active Medications Acetaminophen (Tylenol -) 650 mg PO Q6H PRN PRN Reason: FEVER Albuterol/Ipratropium (Duoneb -) 1 amp NEB RQID [facility] Last Admin: 05/03/17 09:05 Dose: 1 amp Clopidogrel Bisulfate (Plavix -) 75 mg PO DAILY [facility] Last Admin: 05/02/17 10:17 Dose: 75 mg Doxepin HCl (Sinequan -) 100 mg PO DAILY [facility] Last Admin: 05/02/17 11:20 Dose: 100 mg HCTZ/Losartan Potassium (Hyzaar -) 2 tab PO DAILY [facility] Last Admin: 05/02/17 11:19 Dose: 2 tab Levofloxacin (Levaquin 500 Mg Premixed Ivpb -) 500 mg in 100 mls @ 100 mls/hr IVPB DAILY [facility] Last Admin: 05/02/17 10:17 Dose: 100 mls/hr Methadone HCl 20 mg/ Methadone (HCl 80 mg) 100 mg PO DAILY [facility] Last Admin: 05/02/17 11:55 Dose: 100 mg Methylprednisolone Sodium Succinate (Solu-Medrol -) 40 mg IVPUSH Q6H-IV [facility] Last Admin: 05/03/17 02:24 Dose: 40 mg Pantoprazole Sodium (Protonix -) 40 mg PO DAILY [facility] Last Admin: 05/02/17 10:17 Dose: 40 mg - Objective Vital Signs: Vital Signs Temperature 97.4 F L 05/03/17 06:04 Pulse Rate 73 05/03/17 06:04 Respiratory Rate 20 05/03/17 06:04 Blood Pressure 121/86 05/03/17 06:04 O2 Sat by Pulse Oximetry (%) 93 L 05/02/17 21:00 Constitutional: Yes: No Distress, Calm, Obese Cardiovascular: Yes: Regular Rate and Rhythm Respiratory: Yes: Regular, Poor Air Entry, Other Gastrointestinal: Yes: Normal Bowel Sounds, Soft Musculoskeletal: Yes: WNL Extremities: Yes: WNL Neurological: Yes: Alert, Oriented Psychiatric: Yes: Alert, Oriented Labs: CBC, BMP 05/03/17 06:35 05/03/17 06:35 Assessment/Plan Problem List - Problems (1) Asthma Code(s): J45.909 - UNSPECIFIED ASTHMA, UNCOMPLICATED (2) Essential hypertension Code(s): I10 - ESSENTIAL (PRIMARY) HYPERTENSION (3) Hyperlipidemia Code(s): E78.5 - HYPERLIPIDEMIA, UNSPECIFIED (4) Osteoarthritis Code(s): M19.90 - UNSPECIFIED OSTEOARTHRITIS, UNSPECIFIED SITE Hyperlipidemia Polycythemmia Polysubstance Abuse Smoker plan will change to oral continue current mgmt incentive petra rest as per primary team
[2017-05-03] MEDS: METHADONE 20 MG, METHADONE 80 MG PO SCH (11:10)
[2017-05-03] MEDS: LOSARTAN 50MG/HCTZ 12.5MG 1 TAB (FP) PO SCH (11:11)
[2017-05-03] MEDS: PANTOPRAZOLE 40 MG TABLET (FP) PO SCH (11:12)
[2017-05-03] MEDS: CLOPIDOGREL BISULFATE 75 MG TABLET (FP) PO SCH (11:12)
[2017-05-03] MEDS: DOXEPIN HCL 25 MG CAPSULE PO SCH (11:12)
[2017-05-03] MEDS ORDERED: BENZOCAINE/MENTH/CETYLPYRD CL 1 EACH LOZENGE MM PRN (11:32)
--- NOTE | 2017-05-03 11:33 | PN ---
Progress Note, Physician Chief Complaint: AWAKE COUGHING FEELING SLIGHTLY BETTER - Current Medication List Current Medications: Active Medications Acetaminophen (Tylenol -) 650 mg PO Q6H PRN PRN Reason: FEVER Albuterol/Ipratropium (Duoneb -) 1 amp NEB RQID [facility] Last Admin: 05/03/17 09:05 Dose: 1 amp Benzocaine/Menthol (Cepacol Lozenge -) 1 each MM Q4H PRN PRN Reason: SORE THROAT Clopidogrel Bisulfate (Plavix -) 75 mg PO DAILY [facility] Last Admin: 05/02/17 10:17 Dose: 75 mg Doxepin HCl (Sinequan -) 100 mg PO DAILY [facility] Last Admin: 05/02/17 11:20 Dose: 100 mg HCTZ/Losartan Potassium (Hyzaar -) 2 tab PO DAILY [facility] Last Admin: 05/02/17 11:19 Dose: 2 tab Levofloxacin (Levaquin) 750 mg PO DAILY@0600 [facility] Methadone HCl 20 mg/ Methadone (HCl 80 mg) 100 mg PO DAILY [facility] Last Admin: 05/02/17 11:55 Dose: 100 mg Methylprednisolone Sodium Succinate (Solu-Medrol -) 40 mg IVPUSH Q6H-IV [facility] Last Admin: 05/03/17 02:24 Dose: 40 mg Pantoprazole Sodium (Protonix -) 40 mg PO DAILY [facility] Last Admin: 05/02/17 10:17 Dose: 40 mg - Objective Vital Signs: Vital Signs Temperature 97.9 F 05/03/17 11:07 Pulse Rate 98 H 05/03/17 11:07 Respiratory Rate 18 05/03/17 11:07 Blood Pressure 127/87 05/03/17 11:07 O2 Sat by Pulse Oximetry (%) 93 L 05/02/17 21:00 Constitutional: Yes: Mild Distress Eyes: Yes: WNL HENT: Yes: WNL Neck: Yes: WNL Cardiovascular: Yes: WNL Respiratory: Yes: On Nasal O2, Rhonchi, SOB Gastrointestinal: Yes: WNL Genitourinary: Yes: WNL Musculoskeletal: Yes: Muscle Weakness Extremities: Yes: Other Edema: Yes Integumentary: Yes: WNL Wound/Incision: Yes: Clean/Dry Neurological: Yes: Pre-Existing Deficit ...Motor Strength: LLE, RLE Psychiatric: Yes: Other Labs: CBC, BMP 05/03/17 06:35 05/03/17 06:35 Problem List - Problems (1) Acute respiratory failure Code(s): J96.00 - ACUTE RESPIRATORY FAILURE, UNSP W HYPOXIA OR HYPERCAPNIA (2) Alcohol dependence Code(s): F10.20 - ALCOHOL DEPENDENCE, UNCOMPLICATED (3) Asthma Code(s): J45.909 - UNSPECIFIED ASTHMA, UNCOMPLICATED (4) Essential hypertension Code(s): I10 - ESSENTIAL (PRIMARY) HYPERTENSION (5) Hyperlipidemia Code(s): E78.5 - HYPERLIPIDEMIA, UNSPECIFIED (6) Osteoarthritis Code(s): M19.90 - UNSPECIFIED OSTEOARTHRITIS, UNSPECIFIED SITE (7) Seizure disorder Code(s): G40.909 - EPILEPSY, UNSP, NOT INTRACTABLE, WITHOUT STATUS EPILEPTICUS (8) Methadone dependence Code(s): F11.20 - OPIOID DEPENDENCE, UNCOMPLICATED (9) Acute bronchitis Code(s): J20.9 - ACUTE BRONCHITIS, UNSPECIFIED Assessment/Plan IV ABX AND STEROIDS NEBS 02 SUPPORT DV PROPHYLAXIS OOB TO CHAIR PT [facility]
[2017-05-03] MEDS: LEVOFLOXACIN 750 MG TABLET PO SCH (11:34)
--- NOTE | 2017-05-03 12:31 | PN ---
Progress Note (short form) - Note Progress Note: PULMONARY APPEARS STABLE SITTING UP IN BED VSS/AFEBRILE ANICTERIC BILATERAL EXP RHONCHI DIFFUSE S1S2 BS+ OBESE NO EDEMA LABS/MEDS/NOTES/IMAGES/MICRO NOTED HGB 17.2 INFLU SWAB NEG A/E B. ASTHMA LIKELY DUE TO ACUTE BRONCHITIS MULTIPLE CO-MORBID CONDITIONS LISTED WILL NEED TO R/O OSAS OUTPATIENT IV STEROIDS/ANTIBIOTICS/BRONCHODILATORS/O2 SUPPLEMENTATION/DAILY PEAK FLOW CHECK URINE CULTURE FOLLOWS WITH HEME OUTPATIENT R MAE HERRERA Problem List - Problems (1) Asthma Code(s): J45.909 - UNSPECIFIED ASTHMA, UNCOMPLICATED (2) Essential hypertension Code(s): I10 - ESSENTIAL (PRIMARY) HYPERTENSION (3) Hyperlipidemia Code(s): E78.5 - HYPERLIPIDEMIA, UNSPECIFIED (4) Osteoarthritis Code(s): M19.90 - UNSPECIFIED OSTEOARTHRITIS, UNSPECIFIED SITE
[2017-05-04] MEDS: methylPREDNISolone NA SUCC 40 MG/1 ML VIAL IVPUSH SCH ×2 (02:32→09:00)
[2017-05-04] MEDS: LEVOFLOXACIN 750 MG TABLET PO SCH (05:52)
[2017-05-04 06:50] VITALS: BP 147/97; PULSE 90; TEMP 97.6
[2017-05-04] MEDS: ALBUTEROL SO4 2.5/IPRATROPIUM 0.5 INH SOL 3 ML VIAL.NEB. NEB SCH ×2 (08:38→12:00)
[2017-05-04] MEDS ORDERED: HEPARIN NA (PORCINE) 5,000 UNITS/ML 1ML VIAL SQ SCH (10:00)
[2017-05-04] MEDS ORDERED: METHADONE HCL 10 MG TABLET ONE (10:44)
[2017-05-04] MEDS ORDERED: METHADONE HCL 40 MG DISPERSABLE TABLET ONE (10:44)
[2017-05-04] MEDS: METHADONE 20 MG, METHADONE 80 MG PO SCH (10:54)
[2017-05-04] MEDS: LOSARTAN 50MG/HCTZ 12.5MG 1 TAB (FP) PO SCH (10:56)
[2017-05-04] MEDS: PANTOPRAZOLE 40 MG TABLET (FP) PO SCH (10:56)
[2017-05-04] MEDS: CLOPIDOGREL BISULFATE 75 MG TABLET (FP) PO SCH (10:56)
[2017-05-04] MEDS: DOXEPIN HCL 25 MG CAPSULE PO SCH (10:57)
--- NOTE | 2017-05-04 11:44 | DS ---
Physical Examination Vital Signs: Vital Signs Temperature 97.6 F 05/04/17 06:46 Pulse Rate 90 05/04/17 06:46 Respiratory Rate 20 05/04/17 06:46 Blood Pressure 147/97 05/04/17 06:46 O2 Sat by Pulse Oximetry (%) 93 L 05/03/17 21:00 Constitutional: Yes: No Distress Eyes: Yes: WNL HENT: Yes: WNL Neck: Yes: WNL Cardiovascular: Yes: WNL Respiratory: Yes: CTA Bilaterally, Wheezes Gastrointestinal: Yes: WNL Musculoskeletal: Yes: WNL Extremities: Yes: Other Edema: Yes Peripheral Pulses WNL: Yes Integumentary: Yes: Rash, Venous Stasis Changes Wound/Incision: Yes: Dressing Dry and Intact Neurological: Yes: WNL ...Motor Strength: WNL Psychiatric: Yes: WNL Labs: CBC, BMP 05/03/17 06:35 05/03/17 06:35 Discharge Summary Reason For Visit: ACUTE RESPIRATORY FAILURE Current Active Problems Acute bronchitis (Acute) Acute respiratory failure (Acute) Methadone dependence (Acute) Procedures: Principal: CXR Other Procedures: LABS Hospital Course: ADMITTED FOR ACUTE RESP DISTRESS/ACUTE ASTHMA/COPD EXACERBATION ACUTE ON CHRONIC. TREATED WITH IV ABX/NEBS/STEROIDS 02 SUPPORT. Condition: Improved - Instructions Diet, Activity, Other Instructions: LOW SODIUM SEE DR HOFF IN 3 DAYS Referrals: Jourdan Hoff MD, MD [Primary Care Provider] - Disposition: HOME - Home Medications Comprehensive Discharge Medication List: Ambulatory Orders Albuterol Sulfate Inhaler - [Ventolin Hfa Inhaler -] 2 inh PO Q6H PRN 01/12/16 Clopidogrel Bisulfate [Plavix -] 75 mg PO DAILY 01/12/16 Doxepin HCl 100 mg PO DAILY 01/12/16 Losartan/Hydrochlorothiazide [Losartan-Hctz 100-25 mg Tab] 1 each PO DAILY 01/11 Methadone [Dolophine -] 100 mg PO DAILY 01/12/16 Pantoprazole Sodium [Protonix] 40 mg PO DAILY 01/12/16 Tramadol HCl 50 mg PO BID 01/12/16
--- NOTE | 2017-05-04 13:23 | PN ---
Progress Note (short form) - Note Progress Note: PULMONARY Breathing continues to improve. No fevers or chills. Last Vital Signs Temp Pulse Resp BP Pulse Ox 97.6 F 90 20 147/97 93 L 05/04/17 06:46 05/04/17 06:46 05/04/17 06:46 05/04/17 06:46 05/03/17 21:00 Gen: NAD at rest Heart: RRR Lung: better air movement, scattered wheezes, rhonchi Abd: soft, nontender Ext: chronic changes CBC, BMP 05/03/17 06:35 05/03/17 06:35 Active Medications Acetaminophen (Tylenol -) 650 mg PO Q6H PRN PRN Reason: FEVER Albuterol/Ipratropium (Duoneb -) 1 amp NEB RQID [facility] Last Admin: 05/04/17 12:00 Dose: 1 amp Benzocaine/Menthol (Cepacol Lozenge -) 1 each MM Q4H PRN PRN Reason: SORE THROAT Clopidogrel Bisulfate (Plavix -) 75 mg PO DAILY [facility] Last Admin: 05/04/17 10:56 Dose: 75 mg Doxepin HCl (Sinequan -) 100 mg PO DAILY [facility] Last Admin: 05/04/17 10:57 Dose: 100 mg HCTZ/Losartan Potassium (Hyzaar -) 2 tab PO DAILY [facility] Last Admin: 05/04/17 10:56 Dose: 2 tab Heparin Sodium (Porcine) (Heparin -) 5,000 unit SQ BID [facility] Last Admin: 05/04/17 10:55 Dose: 5,000 unit Levofloxacin (Levaquin) 750 mg PO DAILY@0600 [facility] Last Admin: 05/04/17 05:52 Dose: 750 mg Methadone HCl 20 mg/ Methadone (HCl 80 mg) 100 mg PO DAILY [facility] Last Admin: 05/04/17 10:54 Dose: 100 mg Methylprednisolone Sodium Succinate (Solu-Medrol -) 40 mg IVPUSH Q6H-IV [facility] Last Admin: 05/04/17 09:00 Dose: 40 mg Pantoprazole Sodium (Protonix -) 40 mg PO DAILY [facility] Last Admin: 05/04/17 10:56 Dose: 40 mg A/P Acute Hypoxic Respiratory Failure Acute Asthma Exacerbation Acute Bronchitis HTN Hyperlipidemia Polycythemmia Polysubstance Abuse Smoker - can change steroids to PO prednisone and taper as outpt - inhaled bronchodilators standing and PRN - O2 to keep SpO2 >90% - continue antibiotics - smoking cessation - DVT prophylaxis
--- NOTE | 2017-05-04 14:09 | PN ---
Progress Note, Physician History of Present Illness: no issues patient stable - Objective Vital Signs: Vital Signs Temperature 97.6 F 05/04/17 06:46 Pulse Rate 90 05/04/17 06:46 Respiratory Rate 20 05/04/17 06:46 Blood Pressure 147/97 05/04/17 06:46 O2 Sat by Pulse Oximetry (%) 93 L 05/03/17 21:00 Constitutional: Yes: No Distress, Calm Cardiovascular: Yes: Regular Rate and Rhythm Respiratory: Yes: Regular, CTA Bilaterally Gastrointestinal: Yes: Normal Bowel Sounds, Soft Musculoskeletal: Yes: WNL Extremities: Yes: WNL Neurological: Yes: Alert, Oriented Psychiatric: Yes: Alert, Oriented Labs: CBC, BMP 05/03/17 06:35 05/03/17 06:35 Assessment/Plan Problem List - Problems (1) Asthma Code(s): J45.909 - UNSPECIFIED ASTHMA, UNCOMPLICATED (2) Essential hypertension Code(s): I10 - ESSENTIAL (PRIMARY) HYPERTENSION (3) Hyperlipidemia Code(s): E78.5 - HYPERLIPIDEMIA, UNSPECIFIED (4) Osteoarthritis Code(s): M19.90 - UNSPECIFIED OSTEOARTHRITIS, UNSPECIFIED SITE Hyperlipidemia Polycythemmia Polysubstance Abuse Smoker plan continue current mgmt rest as per primary
== END 2017-05-04 13:30 | disposition home or self-care (01) | DRG 133 ==
LOC: JER 10:56 → JERBED 16:21 → J7W 05-02 00:14
PROVIDERS: ADMIT Family Medicine; ATTEND Family Medicine
DX: J96.02 Acute respiratory failure with hypercapnia (principal); J44.1 Chronic obstructive pulmonary disease with (acute) exacerbation; E78.5 Hyperlipidemia, unspecified; I10 Essential (primary) hypertension; I73.89 Other specified peripheral vascular diseases; F19.10 Other psychoactive substance abuse, uncomplicated; R01.1 Cardiac murmur, unspecified; E78.00 Pure hypercholesterolemia, unspecified; G40.909 Epilepsy, unspecified, not intractable, without status epilepticus; F41.8 Other specified anxiety disorders; E66.01 Morbid (severe) obesity due to excess calories; Z68.42 Body mass index [BMI] 45.0-49.9, adult; I83.009 Varicose veins of unspecified lower extremity with ulcer of unspecified site; F17.200 Nicotine dependence, unspecified, uncomplicated; D75.1 Secondary polycythemia; R09.02 Hypoxemia; F10.20 Alcohol dependence, uncomplicated; M25.562 Pain in left knee; M25.561 Pain in right knee; J96.01 Acute respiratory failure with hypoxia; J20.9 Acute bronchitis, unspecified; J44.0 Chronic obstructive pulmonary disease with (acute) lower respiratory infection; Z88.0 Allergy status to penicillin
CPT/HCPCS: 36415; 36600; 71046-TC; 80053; 81003; 81015; 82550; 82803; 82962; 83735; 83880; 84100; 84484; 85025; 85027; 87081; 87086; 87804; 87899; 93005; 93010; 94010; 94640; 97116-GP; 97161-GP; 99285-25; J1644